=== PATIENT | female | born 1955 | race Caucasian/White ===

== ENCOUNTER 2016-05-22 19:49 | Emergency (ER) | payer MEDICAID ==
[2016-05-22] MEDS ORDERED: diphenhydrAMINE 50 MG/ML SDV IVPUSH ONE (19:59)
[2016-05-22] MEDS ORDERED: methylPREDNISolone Sodium Succinate 125 MG/2 ML SDV IVPUSH ONE (19:59)
[2016-05-22] MEDS ORDERED: Sodium Chloride 0.9% 1,000 ML IV SCH (20:00)
[2016-05-22 20:06] VITALS: BP 179/75
--- NOTE | 2016-05-22 21:16 | EDM.PDOC ---
ED HPI Allergic Reaction - General Chief Complaint: Allergic Reaction Stated Complaint: [facility] Time Seen by Provider: 05/22/16 19:55 Source: Reports: Patient History Limitations: Reports: No limitations - History of Present Illness INITIAL COMMENTS - FREE TEXT/NARRATIVE: Pt was cooking kale and she suddenly began to break out and got all red. Her back felt very hot. She felt like she had some swelling in her tongue. She did not feel that she had an impaired airway. Timing/Duration: Reports: Hour(s):, Getting worse Location, Skin: Reports: other (Pt had tingling around her mouth and swelling in her tongue. ) Characteristics: Reports: other ( uritcarial rash and total body redness. ) Associated features: Reports: swelling Severity: moderate Known identified source: no Place: home - Related Data Allergies/ADRs: Allergies Allergy/AdvReac Type Severity Reaction Status Date / Time Bleach (Sodium Hypochlorite) Allergy Rash Verified 05/22/16 20:08 caffeine Allergy Tachycardia Verified 05/22/16 20:54 carbamazepine [From Tegretol] Allergy Rash Verified 03/14/14 00:28 chocolate flavor Allergy Rash Verified 05/22/16 20:08 Latex, Natural Rubber Allergy Rash Verified 03/14/14 00:28 Penicillins Allergy Hives Verified 03/14/14 00:28 soap Allergy Rash Verified 05/22/16 20:54 Sulfa (Sulfonamide Allergy Hives Verified 03/14/14 00:28 Antibiotics) venom-honey bee Allergy Anaphylactic Verified 05/22/16 20:08 Shock Home Meds: Home Meds ALPRAZolam [Xanax] 0.5 mg PO ASDIRECTED PRN 03/09/14 [History] Aspirin [Halfprin] 81 mg PO DAILY 03/09/14 [History] Diazepam [Valium] 2 mg PO DAILY 03/09/14 [History] Enalapril Maleate [Vasotec] 20 mg PO BID 03/09/14 [History] Hydrocodone/Acetaminophen [[place] 5-325] 1 tab PO Q4HR PRN 03/09/14 [History] Levothyroxine [Synthroid] 75 mcg PO DAILY 03/09/14 [History] Metoprolol Tartrate [Lopressor] 100 mg PO BID 03/09/14 [History] Simvastatin [Zocor] 20 mg PO BEDTIME 03/09/14 [History] diphenhydrAMINE [Benadryl] 50 mg PO Q6H PRN 03/12/14 [History] Ibuprofen 400 mg PO Q6H PRN 03/14/14 [History] EPINEPHrine [Epipen] 0.3 mg IM ONETIME 05/22/16 [History] Gluc 2KCl/Chondr/Faby Hy/Hy Ac [Glucosamine & Chondroitin Cap] 1 each PO DAILY 05/22/16 [History] Multivitamin with Minerals [Multiple Vitamin] 1 tab PO DAILY 05/22/16 [History] Pimecrolimus [Elidel] 1 applic TOP BID 05/22/16 [History] Triamcinolone Acetonide [Kenalog 0.1% Crm] 1 applic TOP BID 05/22/16 [History] Social & Family History - Tobacco Use Smoking Status *Q: Never Smoker Second Hand Smoke Exposure: No - Alcohol Use Days Per Week of Alcohol Use: 7 Number of Drinks Per Day: 4 Total Drinks Per Week: 28 - Recreational Drug Use Recreational Drug Use: No ED ROS ALLERGIC REACTION - Review of Systems Review Of Systems: See Below Constitutional: Reports: no symptoms HEENT: Reports: No symptoms Respiratory: Reports: no symptoms Cardiovascular: Reports: No symptoms Endocrine: Reports: no symptoms GI/Abdominal: Reports: No symptoms : Reports: no symptoms Musculoskeletal: Reports: no symptoms Skin: Reports: pruritis, erythema, urticaria Neurological: Reports: no symptoms Psychiatric: Reports: No symptoms ED EXAM GENERAL NO PERIP PULSE - Physical Exam Exam: See Below Text/Narrative:: Pt developed total body redness. She had swelling in her hands. She had a large hive on her left inner thigh. Exam Limited By: No limitations General Appearance: alert, anxious Ears: normal TMs Nose: normal inspection Throat/Mouth: Normal inspection Head: atraumatic Neck: normal inspection Respiratory/Chest: no respiratory distress Cardiovascular: regular rate, rhythm GI/Abdominal: soft, non tender Rectal (Female) Exam: Deferred Back Exam: normal inspection Extremities: other (pt has alot swelling in her hands, She had swelling in her tongue. ) Neurological: alert, oriented Psychiatric: normal affect Skin Exam: Erythema, Rash Course - Vital Signs Last Recorded V/S: Last Vital Signs Temp 36.9 C 05/22/16 19:57 Pulse 92 05/22/16 19:57 Resp 18 05/22/16 19:57 BP 179/75 H 05/22/16 19:57 Pulse Ox 97 05/22/16 19:57 - Orders/Labs/Meds Orders: Active Orders 24 hr Category Date Time Status Sodium Chloride 0.9% [Normal Saline] 1,000 ml Med 05/22/16 20:00 Active IV ASDIRECTED Medication Orders Sodium Chloride (Normal Saline) 1,000 mls @ 999 mls/hr IV ASDIRECTED MADELYN Last Admin: 05/22/16 20:21 Dose: 999 mls/hr Labs: Laboratory Tests 05/22/16 05/22/16 Range/Units 20:03 20:03 WBC 6.8 (4.5-11.0) K/uL RBC 4.50 (3.30-5.50) M/uL Hgb 14.4 (12.0-15.0) g/dL Hct 42.3 (36.0-48.0) % MCV 94 (80-98) fL MCH 32 H (27-31) pg MCHC 34 (32-36) % Plt Count 230 (150-400) K/uL Neut % (Auto) 59 (36-66) % Lymph % (Auto) 34 (24-44) % [place] % (Auto) 6 (2-6) % Eos % (Auto) 1 L (2-4) % Baso % (Auto) 0 (0-1) % Sodium 142 (140-148) mmol/L Potassium 4.1 (3.6-5.2) mmol/L Chloride 103 (100-108) mmol/L Carbon Dioxide 24 (21-32) mmol/L Anion Gap 15.1 H (5.0-14.0) mmol/L BUN 20 H (7-18) mg/dL Creatinine 0.9 (0.6-1.0) mg/dL Est Cr Clr Drug Dosing 53.61 mL/min Estimated GFR (MDRD) > 60 (>60) Glucose 116 H (74-106) mg/dL Calcium 9.6 (8.5-10.1) mg/dL Total Bilirubin 0.3 D (0.2-1.0) mg/dL AST 31 (15-37) U/L ALT 60 (12-78) U/L Alkaline Phosphatase 39 L (46-116) U/L Total Protein 8.3 H (6.4-8.2) g/dL Albumin 4.6 (3.4-5.0) g/dL Globulin 3.7 H (2.3-3.5) g/dL Albumin/Globulin Ratio 1.2 (1.2-2.2) Meds: Medications Generic Name Dose Route Start Last Admin Trade Name Alexis PRN Reason Stop Dose Admin Sodium Chloride 1,000 mls @ 999 mls/hr 05/22/16 20:00 05/22/16 20:21 Normal Saline IV 999 mls/hr ASDIRECTED MADELYN Administration Discontinued Medications Generic Name Dose Route Start Last Admin Trade Name Avinashq PRN Reason Stop Dose Admin Diphenhydramine HCl 25 mg 05/22/16 19:59 05/22/16 20:23 Benadryl IVPUSH 05/22/16 20:00 25 mg ONETIME ONE Administration Methylprednisolone Sodium Succinate 125 mg 05/22/16 19:59 05/22/16 20:30 Solu-Medrol IVPUSH 05/22/16 20:00 125 mg ONETIME ONE Administration - Re-Assessments/Exams Free Text/Narrative Re-Assessment/Exam: 05/22/16 21:16 Pt arrived with a total body rash and redness. She was given a liter of fluid, solumedrol 125 and benadryl 25 mg iv. She had taken benadryl 50mg prior to arrival. 05/22/16 21:17 She did improve with this treatment. Departure - Departure Time of Disposition: 21:18 Disposition: Home, Self-Care 01 Condition: fair Clinical Impression: Allergic reaction Forms: ED Department Discharge Care Plan Goals: cool pack to the rt hand, benadryl 50mg q6h for the next 24 hours. predisone 10mg 2 tabs for 2 days then 1 tab for 3 days. - My Orders Last 24 Hours: My Active Orders 05/22/16 20:00 Sodium Chloride 0.9% [Normal Saline] 1,000 ml IV ASDIRECTED - Assessment/Plan Last 24 Hours: My Active Orders 05/22/16 20:00 Sodium Chloride 0.9% [Normal Saline] 1,000 ml IV ASDIRECTED
== END 2016-05-22 21:45 | disposition home or self-care (01) ==
LOC: JP.ED 19:49
DX: R21 Rash and other nonspecific skin eruption (principal); Z79.82 Long term (current) use of aspirin; Z79.899 Other long term (current) drug therapy; Z88.8 Allergy status to other drugs, medicaments and biological substances; Z88.2 Allergy status to sulfonamides; Z88.0 Allergy status to penicillin
CPT/HCPCS: 36415; 80053; 85025; 96374; 96375; 99284; J1200; J2930; J7040

== ENCOUNTER 2019-03-03 06:49 | Day surgery (SDC) | payer MEDICAID ==
[2019-03-03] MEDS ORDERED: fentaNYL 100 MCG/2 ML SDV ONE (07:24)
[2019-03-03] MEDS ORDERED: Midazolam 1 MG/ML 2 ML SDV ONE (07:24)
[2019-03-03] MEDS ORDERED: Propofol 200 MG/20 ML SDV ONE ×2 (07:24→10:01)
[2019-03-03] MEDS ORDERED: Dextrose 5%-Lactated Ringers 1,000 ML IV SCH (07:30)
[2019-03-03 11:22] VITALS: BP 174/88; PULSE 64
--- NOTE | 2019-03-11 16:17 | OR ---
DATE OF PROCEDURE: 03/03/2019 SURGEON: Frank Red MD PREOPERATIVE DIAGNOSIS: Indications for screening colonoscopy. POSTOPERATIVE DIAGNOSIS: Single small polyp at 20 cm from the dentate line. OPERATIVE PROCEDURE: Flexible colonoscopy with polypectomy by snare technique. ANESTHESIA: IV sedation. INDICATION FOR PROCEDURE: A 63-year-old female presenting for a screening colonoscopy. The plan is to proceed with a flexible colonoscopy with biopsies and/or polypectomy as indicated. Potential risks including bleeding and perforation were discussed, and the patient wishes to proceed. DETAILS OF PROCEDURE: The patient was taken to the operating room and placed in a left lateral decubitus position. IV sedation was administered, after which the initial digital rectal exam was performed that was unremarkable. Colonoscope was then passed into the rectum with retroflexion revealing uncomplicated hemorrhoidal columns. The scope was then eventually passed to the level of the cecum. The prep was quite good with only a small amount of liquid and some scattered solid stool present with the vast majority of the mucosal surfaces being well visualized to that level. A single small polyp ranging around 3 mm was noted in the sigmoid colon roughly 20 cm from the dentate line. Apart from that, there were no areas of polyps or other signs of neoplasia and no areas of colitis or diverticular disease. Upon withdrawal of the scope, the above findings were reconfirmed. The polyp was then identified once again and encircle that space with a snare and cauterized away from that surface. The specimen was then sent for pathologic review. Good hemostasis was noted at the polypectomy site. The procedure then concluded. The patient was taken to the recovery room in satisfactory condition. The plan will be to await the pathology report and then we will give the patient guidance in terms of the timing for the next colonoscopy. Frank Red MD /[id number]
== END 2019-03-03 11:45 | disposition home or self-care (01) ==
LOC: JP.SDS 06:49
PROVIDERS: ATTEND Surgery
DX: Z12.11 Encounter for screening for malignant neoplasm of colon (principal); K63.5 Polyp of colon; K64.9 Unspecified hemorrhoids; I10 Essential (primary) hypertension; E78.00 Pure hypercholesterolemia, unspecified; E66.01 Morbid (severe) obesity due to excess calories; Z68.41 Body mass index [BMI] 40.0-44.9, adult
CPT/HCPCS: 45385; 88305; J2250; J2704; J3010; J7121